=== PATIENT | male | born 1945 | race Caucasian/White ===

== ENCOUNTER 2018-11-21 22:40 | Inpatient (IN) | payer MEDICARE, MEDICAID ==
[~2018-11-21] VITALS: Ht 162.6 cm; Wt 89.8 kg
[2018-11-22] VITALS (7 sets, daily range): BP systolic 127–158; BP diastolic 57–78
[2018-11-22 01:19] LABS: BASOPHILS % 0.3 % (0.0-2.0); EOSINOPHILS % 2.3 % (0.0-5.0); HEMATOCRIT. 41.1 % (42.0-52.0); HEMOGLOBIN. 13.8 g/dL (14.0-18.0); LYMPHOCYTES % 16.5 % (20.0-50.0); MEAN CORPUSCULAR HEMOGLOBIN 31.8 pg (28.0-32.0); MEAN CORPUSCULAR VOLUME 95.1 fL (80.0-94.0); MEAN PLATELET VOLUME 9.5 fl (7.4-10.4); MONOCYTES % 6.9 % (2.0-8.0); PLATELET 216 x1000/uL (130-400); RED BLOOD CELL COUNT 4.32 mill/uL (4.7-6.1); RED CELL DISTRIBUTION WIDTH 14.3 % (11.6-14.6)
[2018-11-22 01:20] LABS: CHLORIDE 108 mEq/L (98-107)
[2018-11-22] MEDS ORDERED: DEXTROSE 5% WATER 1,000 ML IV ONE (01:20)
[2018-11-22] MEDS ORDERED: GLIP10TA10 PO (03:37)
[2018-11-22] MEDS ORDERED: ASPI-1159 PO (03:37)
[2018-11-22] MEDS ORDERED: LANS30CA55 PO (03:37)
[2018-11-22] MEDS ORDERED: SIMV40TA5 PO (03:37)
[2018-11-22] MEDS ORDERED: ENAL20TA PO (03:37)
[2018-11-22] MEDS ORDERED: ACETAMINOPHEN 325MG TABLET PO PRN (08:00)
[2018-11-22] MEDS ORDERED: ONDANSETRON HCL 4MG/2ML INJ IV PRN (08:00)
[2018-11-22] MEDS ORDERED: AMLODIPINE 5MG TABLET PO SCH (09:00)
[2018-11-22] MEDS ORDERED: DEXTROSE 50% WATER 50ML SYRINGE IV PRN (11:00)
[2018-11-22] MEDS ORDERED: BLOOD SUGAR DIAGNOSTIC STRIP TEST SCH (12:40)
[2018-11-22] MEDS ORDERED: INSULIN LISPRO 100 UNITS/ML SUBCUT SCH (13:10)
== END 2018-11-22 18:02 | disposition home or self-care (01) | DRG 638 ==
LOC: ER 23:45 → 7WST 11-22 01:21 → EDBEDREQTM 11-22 01:23 → EDBEDREQ 11-22 01:23 → ENRESERV 11-22 01:45
PROVIDERS: ADMIT Internal Medicine; ATTEND Internal Medicine
DX: E11.649 Type 2 diabetes mellitus with hypoglycemia without coma (principal); E44.1 Mild protein-calorie malnutrition; I69.351 Hemiplegia and hemiparesis following cerebral infarction affecting right dominant side; E11.22 Type 2 diabetes mellitus with diabetic chronic kidney disease; E66.9 Obesity, unspecified; E87.8 Other disorders of electrolyte and fluid balance, not elsewhere classified; I12.9 Hypertensive chronic kidney disease with stage 1 through stage 4 chronic kidney disease, or unspecified chronic kidney disease; N18.3 Chronic kidney disease, stage 3 (moderate); Z68.34 Body mass index [BMI] 34.0-34.9, adult; Z79.4 Long term (current) use of insulin
CPT/HCPCS: 36415; 71045; 80061; 82962; 83036; 84443; 84484; 93005; 96360; 99285; J1815; J7042